=== PATIENT | female | born 1970 | race Hispanic/Latino ===

== ENCOUNTER → 2022-06-18 | Day surgery (SDC) | payer BC ==
[~2022-06-18] MED LIST: AMITIZA8 MCG PO; AMLODIPINE BESYL5 MG PO; EPHEDRINE SULFATE INJ 50 MG/ML VIAL ONE; FENTANYL CITRATE/PF 100MCG/2 ML INJ ONE; LIDOCAINE HCL 2% LOCAL INJ 5 ML SDV VIAL INJ ONE; OLMESARTAN-HCT1 EAC1 PO; PROPOFOL IV EMULSION 10 MG/ML 20 ML VIAL ONE; SPIRONOLACTONE1 GM; SPIRONOLACTONE100 MG PO
[2022-06-18 10:25] VITALS: BP 120/82
== END | disposition home or self-care (01) ==
LOC: OR 08:00
PROVIDERS: ATTEND Internal Medicine Gastroenterology
DX: Z12.11 Encounter for screening for malignant neoplasm of colon (principal); D12.3 Benign neoplasm of transverse colon; K57.30 Diverticulosis of large intestine without perforation or abscess without bleeding; K59.00 Constipation, unspecified; K62.5 Hemorrhage of anus and rectum; K64.8 Other hemorrhoids; I10 Essential (primary) hypertension; Z01.810 Encounter for preprocedural cardiovascular examination; Z79.899 Other long term (current) drug therapy; Z68.42 Body mass index [BMI] 45.0-49.9, adult
CPT/HCPCS: 45384; 81025; 93005; J2001; J2704; J3010; 45378